=== PATIENT | female | born 1990 | race Caucasian/White ===

== ENCOUNTER 2017-11-06 11:50 | Emergency (ER) | payer OTHER ==
[2017-11-06 12:12] VITALS: BP 103/53; PULSE 87; TEMP 98.6; BMI 24.5
[2017-11-06] MEDS ORDERED: TRIAMCINOLONE ACET 40MG/1ML VIAL IM ONE (12:41)
--- NOTE | 2017-11-06 12:51 | PDOC ---
History of Present Illness - General Chief Complaint: Rash Stated Complaint: rash Time Seen by Provider: 11/06/17 12:34 History Source: Patient Exam Limitations: No Limitations - History of Present Illness Initial Comments: 11/06/17 12:41 c/o itchy wheeping rash to the lower right leg, back of left thigh and inner thigh started one week ago. 11/06/17 17:21 Past History - Past Medical History Allergies/Adverse Reactions: Allergies Allergy/AdvReac Type Severity Reaction Status Date / Time No Known Allergies Allergy Verified 11/06/17 12:12 Home Medications: Ambulatory Orders NK [No Known Home Medication] 11/06/17 Asthma: No Cancer: No Cardiac Disorders: No COPD: No Diabetes: No HTN: No Seizures: No Thyroid Disease: No - Suicide/Smoking/Psychosocial Hx Smoking History: Never smoked Have you smoked in the past 12 months: No Information on smoking cessation initiated: No Hx Alcohol Use: No Drug/Substance Use Hx: No Substance Use Type: None Hx Substance Use Treatment: No Review of Systems - Review of Systems Able to Perform ROS?: Yes Is the patient limited [place]an proficient: No Integumentary: Yes: Symptoms Reported *Physical Exam - Vital Signs Last Vital Signs Temp Pulse Resp BP Pulse Ox 98.6 F 87 16 103/53 100 11/06/17 12:10 11/06/17 12:10 11/06/17 12:10 11/06/17 12:10 11/06/17 12:10 - Physical Exam General Appearance: Yes: Nourished, Appropriately Dressed HEENT: positive: EOMI, SHIVANI Respiratory/Chest: positive: Lungs Clear, Normal Breath Sounds Cardiovascular: positive: Regular Rhythm, Regular Rate Musculoskeletal: positive: Normal Inspection Extremity: positive: Normal Capillary Refill, Normal Inspection, Normal Range of Motion Integumentary: positive: Rash (wheeping red vesicular rash to inner right ankle , left inner thigh back of thigh and spreading to groin ), Other Neurologic: positive: Fully Oriented, Alert, Normal Mood/Affect, Normal Response , Motor Strength 5/5 Medical Decision Making - Medical Decision Making 11/06/17 17:22 cc: itchy wheeping rash to the legs no fever most likely poison kanchan or oak will give kenalog injection as the rash is spreading to inner thighs groin area *DC/Admit/Observation/Transfer Diagnosis at time of Disposition: Poison kanchan - Discharge Dispostion Disposition: HOME Condition at time of disposition: Good - Referrals - Patient Instructions Printed Discharge Instructions: DI for Poison Kanchan Allergy Additional Instructions: cool water to bathe take benadryl to sleep claritin or zyrtec during the day apply calamine or caladryl or IvyRest to the area of rash - Post Discharge Activity
[2017-11-06] MEDS ORDERED: TRIAMCINOLONE ACET 40MG/1ML VIAL ONE (12:54)
== END 2017-11-06 13:18 | disposition home or self-care (01) ==
LOC: JERFT 11:50
PROC: 3E0233Z Introduction of Anti-inflammatory into Muscle, Percutaneous Approach (ICD-10-PCS; principal; 2017-11-06)
DX: L23.7 Allergic contact dermatitis due to plants, except food (principal)
CPT/HCPCS: 99281-25

== ENCOUNTER 2022-02-25 09:56 | Emergency (ER) | payer OTHER ==
[2022-02-25 10:06] VITALS: BP 99/65; PULSE 94; RESP 18; TEMP 98; BMI 25.9
[2022-02-25] MEDS ORDERED: IBUPROFEN 400 MG TABLET (FP) PO ONE ×2 (10:31→10:49)
== END 2022-02-25 11:49 | disposition home or self-care (01) ==
LOC: JERFT 09:56
DX: S93.401A Sprain of unspecified ligament of right ankle, initial encounter (principal); X50.0XXA Overexertion from strenuous movement or load, initial encounter
CPT/HCPCS: 73610-TC-RT-FY; 73630-TC-RT-FY; 99283-25